=== PATIENT | female | born 1935 | race Caucasian/White ===

== ENCOUNTER 2016-12-05 12:20 | Outpatient (CLI) | payer MEDICARE, OTHER ==
[2013-02-07 08:17] VITALS: BP 140/66
== END 2016-12-05 12:25 ==
LOC: LAB 12:20
PROVIDERS: ATTEND Family Medicine
DX: I10 Essential (primary) hypertension (principal); E11.9 Type 2 diabetes mellitus without complications
CPT/HCPCS: 36415; 80048; 83036

== ENCOUNTER 2017-04-20 11:44 | Outpatient (CLI) | payer MEDICARE, OTHER ==
[2013-02-07 08:17] VITALS: BP 140/66
--- NOTE | 2017-04-20 14:00 | Diagnostic Imaging Report ---
FLETCHER HOWARD [facility] [address] [facility] [address] [address] Report Submission Date: Apr 20, 2017 1:13:03 PM CDT Patient Study Name: GARRETT MERRILL Date: Apr 20, 2017 11:51:24 AM CDT Modality Type: CR Gender: F Description: CHEST : 37 Institution: [facility] Physician: FLETCHER HOWARD Examination: PA and lateral chest. History: Cough Comparison exam: 30 December 2015 Findings: PA lateral chest demonstrate a normal cardiac and mediastinal silhouette. No focal infiltrate. No effusion. No blunting of the costophrenic margins. Stable right lower lung granuloma. Osseous structures are appropriate for age. Impression: No acute process. Electronically signed on Apr 20, 2017 1:13:03 PM CDT by: Salvador MILLER
== END 2017-04-20 11:45 ==
LOC: RAD 11:44
PROVIDERS: ATTEND Family Medicine
DX: R05 Cough (principal)
CPT/HCPCS: 71020

== ENCOUNTER 2017-08-24 12:19 | Outpatient (CLI) | payer MEDICARE, OTHER ==
[2013-02-07 08:17] VITALS: BP 140/66
[2017-08-24 12:32] LABS: BASOPHILS % 0.8 (0.0-1.5); EOSINOPHILS % 6.4 % (0.0-6.8); MEAN CORPUSCULAR VOLUME 95.2 fl (80.0-100.0); MONOCYTES % 4.9 % (0.0-11.0); NEUTROPHILS # 3.2 # k/uL (1.4-7.7)
[2017-08-24 13:06] LABS: eGFR (African) > 60; eGFR (Non-African) > 60
== END 2017-08-24 12:20 ==
LOC: LAB 12:19
PROVIDERS: ATTEND Family Medicine
DX: E03.9 Hypothyroidism, unspecified (principal); Z51.81 Encounter for therapeutic drug level monitoring
CPT/HCPCS: 36415; 80053; 84443; 85025

== ENCOUNTER 2017-11-29 11:46 | Observation (INO) | payer MEDICARE, OTHER ==
[2017-11-29 12:18] LABS: BASOPHILS % 1.2 (0.0-1.5); EOSINOPHILS % 0.3 % (0.0-6.8); MEAN CORPUSCULAR HEMOGLOBIN 31.1 pg (28.0-34.0); MEAN CORPUSCULAR VOLUME 96.5 fl (80.0-100.0); MONOCYTES % 4.7 % (0.0-11.0); NEUTROPHILS # 3.3 # k/uL (1.4-7.7)
[2017-11-29] MEDS ORDERED: ONDANSETRON HCL/PF 4 MG/ 2ML VIAL IVP ONE (12:18)
[2017-11-29] MEDS ORDERED: 0.9 % SODIUM CHLORIDE 500 ML IV ONE ×2 (12:23→12:36)
[2017-11-29 12:30] LABS: eGFR (African) > 60; eGFR (Non-African) > 60
--- NOTE | 2017-11-29 12:37 | ED Physician Documentation ---
General Adult - HISTORIAN Historian: patient, other (family) - HPI Stated Complaint: Cough/Congestion/Fatigue Chief Complaint: General Adult Onset: days ago (2) Timing: still present Severity: moderate Further Comments: yes (Pt is an 82 yo female with cough, vomiting, and fatigue. Pt has had chills but is afebrile. Pt has hx COPD, afib.) - ROS CONST: weakness, chills CVS/RESP: cough GI/: vomiting, nausea MS/SKIN/LYMPH: none - PAST HX Past History: other (Depression, DM, HLD, COPD, Afib,) Surgeries/Procedures: cholecystectomy Allergies/Adverse Reactions: Allergies Allergy/AdvReac Type Severity Reaction Status Date / Time succinylcholine Allergy Severe Anaphylaxis Verified 09/25/12 04:49 [Succinylcholine] naproxen [From Naprosyn] Allergy Intermediate Verified 09/25/12 04:49 Penicillins Allergy Intermediate Verified 09/25/12 04:50 Sulfa (Sulfonamide Allergy Intermediate Verified 09/25/12 04:49 Antibiotics) [Sulfa(Sulfonamide Antibiotics)] sulindac [From Clinoril] Allergy Intermediate Verified 09/25/12 04:50 aspirin Allergy Verified 01/21/13 18:28 Home Medications: Ambulatory Orders Medication Instructions Recorded Donepezil HCl 10 mg PO DAILY 11/29/17 - SOCIAL HX Smoking History: non-smoker - FAMILY HX Family History: Yes (dementia) - VITAL SIGNS Vital Signs: Vital Signs Temp Pulse Resp BP Pulse Ox 97.4 F L 68 16 178/59 93 11/29/17 11:46 11/29/17 11:46 11/29/17 11:46 11/29/17 11:46 11/29/17 11:46 - REVIEWED ASSESSMENTS Nursing Assessment Reviewed: Yes Vitals Reviewed: Yes Progress - Progress Progress: NS 500 cc IVF Zofran 4 mg IV Influenza A - pos Influenza B - neg (Pt has been ill for 48 hrs.) Admit to Dr[address] Coronel. ED Results Lab/Radiology - Lab Results Lab Results: Lab Results 11/29/17 11/29/17 11/29/17 12:15 12:15 12:05 WBC 4.00 K/ul K/ul (4.00-12.00) RBC 3.98 M/ul M/ul (3.90-5.20) Hgb 12.4 g/dL g/dL (12.0-16.0) Hct 38.4 % % (34.5-46.5) MCV 96.5 fl fl (80.0-100.0) MCH 31.1 pg pg (28.0-34.0) MCHC 32.2 g/dL g/dL (30.0-36.0) RDW 13.1 % % (11.3-14.3) Plt Count 220 K/mm3 K/mm3 (130-400) Neut % (Auto) 84.0 % H % (39.0-79.0) Lymph % (Auto) 8.6 % L % (16.0-50.0) [place] % (Auto) 4.7 % % (0.0-11.0) Eos % (Auto) 0.3 % % (0.0-6.8) Baso % (Auto) 1.2 (0.0-1.5) Neut # (Auto) 3.3 # k/uL # k/uL (1.4-7.7) Lymph # (Auto) 0.3 # k/uL L # k/uL (0.6-4.0) [place] # (Auto) 0.2 # k/uL # k/uL (0.0-0.9) Eos # (Auto) 0.0 # k/uL # k/uL (0.0-0.6) Baso # (Auto) 0.0 # k/uL # k/uL (0.0-0.5) Reactive Lymphs % 1.1 % % (0.0-5.0) Reactive Lymphs # 0.0 # k/uL # k/uL (0.0-0.8) Sodium 140 mmol/L mmol/L (136-145) Potassium 3.8 mmol/L mmol/L (3.5-5.1) Chloride 101 mmol/L mmol/L (98-107) Carbon Dioxide 25 mmol/L mmol/L (22-30) BUN 23 mg/dL H mg/dL (7-17) Creatinine 0.80 mg/dL mg/dL (0.52-1.04) Estimated Creat Clear 69 Est GFR ( Amer) > 60 (60 - ) Est GFR (Non-Af Amer) > 60 (60 - ) Glucose 430 mg/dL H mg/dL (74-106) Calcium 9.5 mg/dL mg/dL (8.4-10.2) Total Bilirubin 0.3 mg/dL mg/dL (0.2-1.3) AST 26 U/L U/L (15-46) ALT 20 U/L U/L (13-69) Alkaline Phosphatase 110 U/L U/L (38-126) Creatine Kinase Pending Total Protein 7.4 g/dL g/dL (6.3-8.2) Albumin 4.2 g/dL g/dL (3.5-5.0) Influenza Type A Ag Positive H (NEGATIVE) Influenza Type B Ag Negative (NEGATIVE) - Orders Orders: ED Orders Category Date Time Status Continuous EKG monitoring Q30M Care 11/29/17 12:12 Active Continuous Pulse Oximetry Q30M Care 11/29/17 12:[address] IV Lock 1T Care 11/29/17 12:12 Active CHEST 1 VIEW [RAD] Stat Exams 11/29/17 Ordered CBC/PLATELET/DIFF Routine Lab 11/29/17 12:15 Completed CMP Routine Lab 11/29/17 12:15 Results CREATINE KINASE Routine Lab 11/29/17 12:15 Results INFLUENZA A&B Stat Lab 11/29/17 12:05 Completed NT-proBNP Stat Lab 11/29/17 12:15 Received TROPONIN I (cTnI) Stat Lab 11/29/17 12:15 Received 0.9 % Sodium Chloride [Normal Saline] 500 ml Med 11/29/17 12:23 Discontinued IV .STK-MED Ondansetron HCl/Pf [Zofran 4 mg/2 ml] Med 11/29/17 12:18 Discontinued 4 mg IVP NOW ONE Oxygen Daily Oxygen 11/29/17 12:15 Ordered EKG WITH COMPARISON Stat Ther 11/29/17 12:12 Ordered General Adult Physical Exam - PHYSICAL EXAM GENERAL APPEARANCE: moderate distress EENT: pharynx normal, dry mucous membranes NECK: normal inspection, supple RESPIRATORY: no resp distress, rhonchi, other (coarse breath sounds) CVS: reg rate & rhythm, heart sounds normal ABDOMEN: soft, no organomegaly, normal bowel sounds BACK: normal inspection, no CVA tenderness SKIN: warm/dry, normal color EXTREMITIES: non-tender, normal range of motion, no evidence of injury NEURO: oriented X3, motor nml, sensation nml Discharge Clincal Impression: Influenza A, Dehydration Condition: Stable Disposition: 09 ADMITTED INPATIENT Decision to Admit: NO Decision Time: 13:53
--- NOTE | 2017-11-29 12:54 | Diagnostic Imaging Report ---
NIYA LAY [facility] [address] [facility] [address] [place] [address]. [id number] Report Submission Date: Nov 29, 2017 12:32:23 PM HEM INSPECTOR Patient Study Name: GARRETT MERRILL Date: Nov 29, 2017 12:19:41 PM HEM INSPECTOR Modality Type: CR Gender: F Description: CHEST : 37 Institution: [facility] Physician: NIYA LAY Examination: Portable chest History: Evaluate lungs Comparison exam: 20 April 2017 Findings: Single view of the chest demonstrates a normal cardiac silhouette. Tortuosity of the aorta. Lung cooper without focal infiltrate. No blunting of the costophrenic margins. Stable granuloma right lower lung. Osseous structures are appropriate for age. Impression: No acute appearing pulmonary process. Electronically signed on Nov 29, 2017 12:32:23 PM HEM INSPECTOR by: Salvador MILLER
[2017-11-29] MEDS ORDERED: IPRATROPIUM/ALBUTEROL SULFATE 3 ML AMPUL.NEB NEB PRN (13:46)
[2017-11-29] MEDS ORDERED: AZITHROMYCIN 500 MG VIAL IV ONE (13:48)
[2017-11-29] MEDS ORDERED: 0.9 % SODIUM CHLORIDE 250 ML IV ONE (13:48)
[2017-11-29] MEDS ORDERED: AZITHROMYCIN 500 MG in 0.9 % SODIUM CHLORIDE 250 ML IV SCH (14:00)
--- NOTE | 2017-11-29 16:50 | History and Physical Report ---
History of Present Illnes - History of Present Illness Reason for Visit: dyspnea History of Present Illness: 82-year-old white female who stated she has developed a cough that is been productive of some clear plan over the last two days. Patient is started having some reading increasing dyspnea shortness of breath with exertion. Patient has some mild loving vomiting. Patient denies any fever but have had some chills. Family is wondering whether the patient may be having some aspiration. Patient has had some small studies done which had been normal. Patient is diabetic and stated her blood sugars have been running high. Patient has become weaker subsequently was seen in the ED for evaluation. In the ED patient was noted to have a positive influenza screen, with having some bilateral wheezing. Patient was subsequently admitted to the hospital for further care and evaluation. - Past Medical History Cardiac: HTN, Hyperlipidemia Pulmonary: Pulmonary embolus SIGNAL INTELLIGENCE ANALYST: Seizure (ORIF wrist fx, excision of meningloma of L hemisphere, tympanoplasty), Other (Parkinson's disease,) Gastrointestinal: Gastritis, Other (ischemic colitis) Renal/: Chronic renal insuff Endocrine: Diabetes (type 2) - Past Surgical History Past Surgical History: Cataract Removal, Hysterectomy, Other - Past Family History Mother Family History: CAD, (63yo) Father Family History: Cancer (panreatic) - Past Social History Smoke: # pack years (4), Quit Alcohol: None Drugs: None Lives: With Family Domestic Violence: Negative - Health Maintenance Health Maintenance: Influenza Vaccine. denies: Pneumococcal Vaccine Influenza Vaccine: Current for this Influenza Season Pneumonia Vaccine: Yes Resuscitation Status: Full Code - Unable to Obtain History Unable to Obtain: No Review of Systems - Review of Systems Constitutional: Chills, Weakness, Malaise. negative: Fever, Sweats Eyes: negative: pain, vision change, conjunctivae inflammation, redness ENT: Other (decrease hearing). negative: Ear Pain, Ear Discharge, Nose Pain, Nose Discharge, Throat Pain Respiratory: Cough, SOB with Excertion, Sputum. negative: Dry, Shortness of Breath, Hemoptysis, Pleuritic Pain Cardiovascular: negative: Chest Pain, Palpitations, Orthopnea, Paroxysmal Noc. Dyspnea, Edema Gastrointestinal: Nausea, Vomiting. negative: Abdominal Pain, Diarrhea, Constipation, Melena, Hematochezia Genitourinary: negative: Dysuria, Incontinence Musculoskeletal: Back Pain Skin: negative: Rash Neurological: Weakness. negative: Numbness, Incoordination, Change in Speech - Medications/Allergies Allergies/Adverse Reactions: Allergies Allergy/AdvReac Type Severity Reaction Status Date / Time succinylcholine Allergy Severe Anaphylaxis Verified 09/25/12 04:49 [Succinylcholine] naproxen [From Naprosyn] Allergy Intermediate Verified 09/25/12 04:49 Penicillins Allergy Intermediate Verified 09/25/12 04:50 Sulfa (Sulfonamide Allergy Intermediate Verified 09/25/12 04:49 Antibiotics) [Sulfa(Sulfonamide Antibiotics)] sulindac [From Clinoril] Allergy Intermediate Verified 09/25/12 04:50 aspirin Allergy Verified 01/21/13 18:28 Home Medications: Home Medications Donepezil HCl 10 mg PO DAILY 11/29/17 Current Inpatient Medications: Current Inpatient Medications Albuterol/Ipratropium (Duoneb) 3 ml NEB Q4 PRN PRN Reason: Wheezing Carbidopa/Levodopa (Sinemet) 1 each PO TID [facility] Citalopram Hydrobromide (Celexa) 40 mg PO DAILY [facility] Clopidogrel Bisulfate (Plavix) 75 mg PO DAILY [facility] Docusate Sodium (Colace) 100 mg PO BID [facility] Donepezil HCl (Aricept) 10 mg PO HS [facility] Fluticasone Propionate (Flonase Nasal [place]) spray NS DAILY [facility] Folic Acid (Folvite) 1 mg PO DAILY [facility] Gabapentin (Neurontin) 600 mg PO TID [facility] Azithromycin 500 mg/ Sodium (Chloride) 250 mls @ 125 mls/hr IV Q24H [facility] Stop: 12/09/17 13:59 Last Admin: 11/29/17 14:24 Dose: 125 mls/hr Sodium Chloride (Normal Saline) 1,000 mls @ 100 mls/hr IV Q10H [facility] Insulin Detemir (Levemir Flex-Pen) 16 unit SQ HS [facility] Insulin Human Regular (Humulin R) 0 - 12 unit SQ CHEMX3 JASMIN PRN Reason: Protocol Losartan Potassium (Cozaar) 100 mg PO DAILY [facility] Nystatin (Nystop) appl TP BID [facility] Stop: 12/09/17 20:59 Omeprazole (Omeprazole) 40 mg PO 0700 [facility] Simvastatin (Zocor) 20 mg PO DAILY [facility] Sitagliptin Phosphate (Januvia) 10 mg PO DAILY [facility] Tramadol HCl (Ultram) 50 mg PO QID [facility] Exam - Exam Vital Signs: Vital Signs (72 hours) 11/29/17 14:10 Pulse Rate [ 68 Pulse ox] Respiratory 18 Rate Blood Pressure 130/68 [Right Arm] O2 Sat by Pulse 94 Oximetry General: Alert, Oriented to Person, Oriented to Place, Oriented to Time, Cooperative HEENT: Atraumatic, PERRLA, EOMI, Mouth Mucous membr. moist/[place], Nose Mucous membr. moist/[place], Edentulous, Decreased Hearing Acuity Neck: Normal Range of Motion Carotids: Within normal limits Thyroid: Within normal limits Lungs: Normal air movement, Speaks full Sentences, Wheezes (Bilateral in all lung cooper.), Rhonchi (A few course rhonchi were noted in the right lung field posteriorly.) Cardiovascular: Regular rate, Normal S1, Normal S2, No murmurs Abdomen: Normal bowel sounds, Soft, No tenderness, No hepatospenomegaly, No masses Integumentary: Normal, [place], Warm, Dry Extremities: No clubbing, No cyanosis, No edema, Normal pulses, No tenderness/ swelling Neurological: Normal gait, Normal speech, Strength Equal Bilat, Normal tone, Sensation intact, Cranial nerves 3-12 NL, Reflexes 2+ Psych/Mental Status: Mental status NL, Mood NL, Appropriate Affect, Intact Judgment Assessment/Plan - Assessment/Plan (1) Influenza Status: Acute (2) Diabetes type 2, controlled Status: Acute (3) Essential hypertension Status: Acute (4) Parkinson disease Status: Acute (5) CKD (chronic kidney disease) Status: Acute VTE Assessment - RISK FACTOR SCORE VTE RISK FACTOR SCORES: AGE OVER 60 YEARS, ACUTE INFECTION OTHER THEN SEPSIS
[2017-11-29] MEDS: 0.9 % SODIUM CHLORIDE 1,000 ML IV SCH (16:54)
[2017-11-29 17:17] VITALS: BMI 24.4
[2017-11-29] MEDS: traMADol HCL 50 MG TABLET PO SCH ×2 (17:25→21:38)
[2017-11-29] MEDS: INSULIN DETEMIR 100 UNIT/ML 3ML PEN.INJCTR SQ SCH ×2 (17:26→20:45)
[2017-11-29] MEDS: GABAPENTIN 300 MG CAPSULE PO SCH (17:27)
[2017-11-29] MEDS: INSULIN REGULAR, HUMAN 100 UNIT/ML 3ML VIAL SQ SCH (17:28)
[2017-11-29] MEDS ORDERED: ZOLPIDEM TARTRATE 5 MG TABLET PO PRN (18:07)
[2017-11-29] MEDS: OSELTAMIVIR PHOSPHATE 75 MG CAPSULE PO SCH ×2 (18:35→18:37)
[2017-11-29] MEDS: DONEPEZIL HCL 5 MG TABLET PO SCH ×2 (20:44)
[2017-11-29] MEDS: DOCUSATE SODIUM 100 MG CAPSULE PO SCH (20:44)
[2017-11-29] MEDS ORDERED: NYSTATIN POWDER BOTTLE TP SCH (21:00)
[2017-11-29] MEDS: IPRATROPIUM/ALBUTEROL SULFATE 3 ML AMPUL.NEB NEB SCH (21:22)
[2017-11-29] MEDS ORDERED: ENOXAPARIN SODIUM 30 MG/0.3 ML DISP.SYRIN SQ SCH (23:00)
[2017-11-30] MEDS: IPRATROPIUM/ALBUTEROL SULFATE 3 ML AMPUL.NEB NEB SCH ×3 (00:56→10:35)
[2017-11-30] MEDS: 0.9 % SODIUM CHLORIDE 1,000 ML IV SCH ×2 (02:00→12:32)
--- NOTE | 2017-11-30 06:49 | Diagnostic Imaging Report ---
[facility] [address] [address] [facility] [address] [place] [address]. [id number] Report Submission Date: Nov 30, 2017 6:44:01 AM RETURNED GOODS INSPECTOR Patient Study Name: GARRETT MERRILL Date: Nov 30, 2017 6:29:40 AM RETURNED GOODS INSPECTOR Modality Type: CR Gender: F Description: CHEST : 36 Institution: [facility] Physician: [facility] HISTORY: 82-year-old female with cough. COMPARISON: Chest x-ray from the previous day. TECHNIQUE: Single portable AP view of the chest was performed. FINDINGS: No pneumothorax, consolidative infiltrates, or pulmonary edema. Calcified granuloma is re-identified in the right lung base. The heart is not enlarged. IMPRESSION: Old granulomatous disease of the chest without evidence of acute intrathoracic process. Electronically signed on Nov 30, 2017 6:44:01 AM RETURNED GOODS INSPECTOR by: Doug MILLER
[2017-11-30 07:45] LABS: BASOPHILS % 0.9 (0.0-1.5); EOSINOPHILS % 0.4 % (0.0-6.8); MEAN CORPUSCULAR HEMOGLOBIN 30.2 pg (28.0-34.0); MEAN CORPUSCULAR VOLUME 96.4 fl (80.0-100.0); MONOCYTES % 8.7 % (0.0-11.0); NEUTROPHILS # 2.1 # k/uL (1.4-7.7)
[2017-11-30 07:49] LABS: eGFR (African) > 60; eGFR (Non-African) > 60
[2017-11-30] MEDS ORDERED: FLUTICASONE PROPIONATE 120 SPRAY/16 GR BOTTLE NS SCH (09:00)
[2017-11-30] MEDS ORDERED: CLOPIDOGREL BISULFATE 75 MG TABLET PO SCH (09:00)
[2017-11-30] MEDS ORDERED: LOSARTAN POTASSIUM 50 MG TABLET PO SCH (09:00)
[2017-11-30] MEDS ORDERED: FOLIC ACID 1 MG TABLET PO SCH (09:00)
[2017-11-30] MEDS ORDERED: CITALOPRAM HYDROBROMIDE 20 MG TABLET PO SCH (09:00)
[2017-11-30] MEDS ORDERED: SITAGLIPTIN PHOSPHATE 50 MG TABLET PO SCH ×2 (09:00)
[2017-11-30] MEDS ORDERED: SIMVASTATIN 20 MG TABLET PO SCH (09:00)
[2017-11-30] MEDS ORDERED: OMEPRAZOLE 20 MG CAPSULE.DR PO SCH (09:00)
[2017-11-30] MEDS: DOCUSATE SODIUM 100 MG CAPSULE PO SCH (10:28)
[2017-11-30] MEDS: GABAPENTIN 300 MG CAPSULE PO SCH (10:29)
[2017-11-30] MEDS: traMADol HCL 50 MG TABLET PO SCH (10:29)
[2017-11-30] MEDS: OSELTAMIVIR PHOSPHATE 75 MG CAPSULE PO SCH (10:30)
[2017-11-30] MEDS: INSULIN REGULAR, HUMAN 100 UNIT/ML 3ML VIAL SQ SCH ×2 (10:56→11:57)
[2017-11-30 14:29] VITALS: BP 128/64
--- NOTE | 2017-11-30 15:14 | Discharge Summary ---
DATE OF ADMISSION: November 29, 2017 DATE OF DISCHARGE: November 30, 2017 DIAGNOSES ON THIS HOSPITALIZATION: 1. Acute Influenza A infection. 2. Chronic diabetes, well controlled. 3. Hypertension, well controlled. 4. Chronic Parkinson disease, well controlled. 5. Chronic kidney disease, stable. SUMMARIZATION OF ADMISSION HISTORY AND PHYSICAL: This is an 82-year-old female who presented with some cough for the last several days. She had been having some increasing dyspnea with exertion and had enough coughing that she became very, very tired. As a result, she came to the emergency room for an evaluation. Chest x-ray failed to show any infiltrates or any overt congestive heart failure. Her Influenza A was positive. She was initially placed on oxygen but was able to wean down to room air by the morning of discharge. She discharged to home then with continuation of all of her home medications with the exception of increasing her nebulizer treatments to 1 q.i.d. scheduled rather than p.r.n. as had been and also, I sent a prescription for Robitussin AC 10 mL p.o. every 4 hours p.r.n. cough out to [facility] and they will deliver that. CONDITION ON DISCHARGE: She is discharged to home in improved condition. ANGELA
[2017-12-01] MEDS ORDERED: PANTOPRAZOLE SODIUM 40 MG TABLET PO SCH (07:00)
== END 2017-11-30 15:13 | disposition home or self-care (01) ==
LOC: ED 11:46 → INTOOBSV 13:50 → SOUTH 13:50
PROVIDERS: ADMIT Family Medicine; ATTEND Family Medicine
DX: J09.X2 Influenza due to identified novel influenza A virus with other respiratory manifestations (principal); E86.0 Dehydration; N17.9 Acute kidney failure, unspecified; E11.9 Type 2 diabetes mellitus without complications; E78.5 Hyperlipidemia, unspecified; I10 Essential (primary) hypertension
CPT/HCPCS: 36415; 71010; 80053; 82550; 83880; 84484; 85025; 87040; 87400; 93005; G0379; J0456; J1650; J1815; J2405; J7030; J7050; J7060; 96360; 99217; 99218; 99284; G0378; S1016

== ENCOUNTER 2017-12-19 11:57 | Outpatient (CLI) | payer MEDICARE, OTHER ==
--- NOTE | 2017-12-19 15:07 | Diagnostic Imaging Report ---
FLETCHER HOWARD [facility] [address] [facility] [address] [place] [address]. [id number] Report Submission Date: Dec 19, 2017 12:37:44 PM CARBURETOR REBUILDER Patient Study Name: GARRETT MERRILL Date: Dec 19, 2017 12:10:20 PM CARBURETOR REBUILDER Modality Type: CR Gender: F Description: CHEST : 37 Institution: [facility] Physician: FLETCHER HOWARD Examination: PA and lateral chest. History: COUGH AND WHEEZING X 1 WEEK, RECENT INFLUENZA A (Hx) / COUGH, WHEEZING , RECENT INFLUENZA A (DICOM Hx) / COUGH, WHEEZING, RECENT INFLUENZA A (Pt comments) Comparison exam: 30 November 2017. Findings: PA lateral chest demonstrate a normal cardiac and mediastinal silhouette. Chronic interstitial changes and granulomata. No focal infiltrate. No blunting of the costophrenic margins. Articular degenerative changes. Thoracic spine degenerative spurring. Impression: Chronic interstitial changes. No acute appearing pulmonary process. Electronically signed on Dec 19, 2017 12:37:44 PM CARBURETOR REBUILDER by: Salvador MILLER
== END 2017-12-19 12:00 ==
LOC: LAB 11:57
PROVIDERS: ATTEND Family Medicine
DX: R05 Cough (principal); E11.9 Type 2 diabetes mellitus without complications
CPT/HCPCS: 36415; 71020; 83036

== ENCOUNTER 2018-12-13 16:16 | Outpatient (CLI) | payer MEDICARE, OTHER ==
[2018-12-13 16:41] LABS: MEAN CORPUSCULAR HEMOGLOBIN 31.6 pg (28.0-34.0)
[2018-12-13 17:16] LABS: eGFR (Non-African) > 60
== END 2018-12-13 16:17 ==
LOC: LABRHC 16:16
PROVIDERS: ATTEND Family Medicine
DX: E11.9 Type 2 diabetes mellitus without complications (principal); I10 Essential (primary) hypertension
CPT/HCPCS: 36415; 80053; 83036; 85027

== ENCOUNTER 2019-11-02 16:43 | Emergency (ER) | payer MEDICARE, OTHER ==
--- NOTE | 2019-11-02 17:00 | ED Physician Documentation ---
General Adult - HISTORIAN Historian: patient - HPI Stated Complaint: facial droop, head trauma Chief Complaint: General Adult Onset: days ago (3) Timing: still present Severity: moderate Further Comments: yes (Pt is an 84 yo female who fell from bed on 10-30-19 and struck her head on a trash basket. Pt has since slowly developed increased difficulty walking and presents with L facial droop. Pt arrived by private vehicle. Pt has hx Parkinson's with gait disturbance and dysphagia. Pt has worsening gait disturbance and speech difficulty as well as L facial droop. Pt has seizure d/o and hx craniotomy for benign brain lesion.) - ROS CONST: weakness EYES/ENT: none CVS/RESP: none GI/: none MS/SKIN/LYMPH: none NEURO/PSYCH: other (worsening gait/speech disturbance, facial droop) - PAST HX Past History: other (DMII with neuropathy; benign neoplasm of brain with craniotomy; HTN; GERD; OA; HLD; asthma; anxiety; seizure; gait disturbance; hearing loss; Parkinson's; mild dementia.) Allergies/Adverse Reactions: Allergies Allergy/AdvReac Type Severity Reaction Status Date / Time succinylcholine Allergy Severe Anaphylaxis Verified 11/02/19 17:17 [Succinylcholine] naproxen [From Naprosyn] Allergy Intermediate Verified 11/02/19 17:17 Penicillins Allergy Intermediate Verified 11/02/19 17:17 Sulfa (Sulfonamide Allergy Intermediate Verified 11/02/19 17:17 Antibiotics) [Sulfa(Sulfonamide Antibiotics)] sulindac [From Clinoril] Allergy Intermediate Verified 11/02/19 17:17 aspirin Allergy Verified 11/02/19 17:17 Succinylcholine Allergy Severe Anaphylaxis Uncoded 11/02/19 17:17 naproxen Allergy Intermediate Uncoded 11/02/19 17:17 Penicillins Allergy Intermediate Uncoded 11/02/19 17:17 Sulfa(Sulfonamide Allergy Intermediate Uncoded 11/02/19 17:17 Antibiotics) Sulindac Allergy Intermediate Uncoded 11/02/19 17:17 Home Medications: Ambulatory Orders Medication Instructions Recorded Donepezil HCl 10 mg PO DAILY 11/29/17 - SOCIAL HX Smoking History: non-smoker - FAMILY HX Family History: No - VITAL SIGNS Vital Signs: Vital Signs Temp Pulse Resp BP Pulse Ox 128/64 01/19/18 14:00 - REVIEWED ASSESSMENTS Nursing Assessment Reviewed: Yes Vitals Reviewed: Yes Progress - Progress Progress: CT BRAIN WITHOUT CONTRAST HISTORY: Head injury Comparison: April 2019 TECHNIQUE: Axial images were obtained from the skullbase to the vertex without IV contrast. FINDINGS: The ventricular system, basilar cisterns and cortical sulci are prominent compatible with age-related cortical volume loss. Patchy areas of periventricular to subcortical white matter lucency are present consistent with moderate small vessel ischemic disease. There is no positive mass effect or intra/extra-axial hemorrhage. There is an unchanged region of encephalomalacia high at the left frontal lobe. Visualized paranasal sinuses and mastoid air cells are clear. Hearing aids are present bilaterally. There has been a left craniotomy high at the vertex. IMPRESSION: Age-related cortical volume loss with moderate small vessel ischemic disease. No acute intracranial abnormality. Old left frontal craniotomy high at the vertex with a chronic, subjacent area of left frontal lobe encephalomalacia. CT cervical spine History: Status post fall with head injury Technique: Helically acquired images were obtained through the cervical spine. Sagittal and coronal reconstructions were performed. Findings: There is incomplete fusion at the posterior arch of C1. There is no evidence for acute fracture or dislocation. There are cystic areas of the thyroid lobes bilaterally. These findings are most consistent with several colloid cysts. The largest is on the right measuring 1.5 cm. The dens is intact. The lateral masses of C1 and C2 are aligned. C2/3: Unremarkable C3/4: There is severe loss of intervertebral disc space height with severe bilateral facet arthropathy. As a result, there is a grade 1 retrolisthesis of C3 relative to C4 measured at 6 mm and there is moderate bilateral foraminal narrowing. Additionally, there is moderate to severe central stenosis with the AP dimension of the canal measuring 6.5 mm. C4/5: There is mild right and severe left facet arthropathy as well as uncovertebral joint hypertrophy. There is [id number] bilateral foraminal narrowing, left worse than right. C5/6: There is a posterior disc osteophyte complex at this level with moderate disc space narrowing and vacuum disc phenomenon. There is moderate central stenosis with the AP dimension of the canal measuring 7.8 mm. There is severe bilateral foraminal narrowing secondary to the disc osteophyte complex. C6/7: There is mild left foraminal narrowing but no central stenosis. C7/T1: Unremarkable. Impression: No evidence for acute fracture or dislocation. 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 Please see body of report with regard to degenerative findings by level. MRI of the cervical spine could be obtained for further assessment of the cord and central canal. Colloid cysts of the thyroid bilaterally. Hydralazine 5 mg x 2 BP 206/96 --> 182/81 transfer to [facility]. Dr. Saavedra (Pt sees Dr. Hawkins at [facility] for Parkinson's) - EKG/XRAY/CT EKG: NSR (NSR with sinus arrhythmia, HR=62; 1st degree AV block; LVH by voltage.) ED Results Lab/Radiology - Orders Orders: ED Orders Category Date Time Status CT BRAIN W/O CONTRAST Stat Exams 11/02/[address] C-SPINE W/O CONTRAST Stat Exams 11/02/19 Ordered General Adult Physical Exam - PHYSICAL EXAM GENERAL APPEARANCE: moderate distress EENT: eye inspection normal, pharynx normal NECK: normal inspection, supple RESPIRATORY: no resp distress, chest non-tender, breath sounds normal CVS: reg rate & rhythm, heart sounds normal ABDOMEN: soft, no organomegaly, normal bowel sounds BACK: normal inspection SKIN: warm/dry, normal color EXTREMITIES: non-tender NEURO: disoriented (hx mild dementia, Parkinsons), other (L facical droop; L UE weakness 4+ v 5+ R; hx mild dementia; ) Discharge Clincal Impression: Parkinson disease, recent head injury Change in mental status Qualifiers: Altered mental status type: unspecified Qualified Code(s): R41.82 - Altered mental status, unspecified Referrals: Gurvinder Coronel MD [STAFF PHYSICIAN] - Condition: Stable Disposition: XF [facility] Decision to Admit: NO Decision Time: 18:07
--- NOTE | 2019-11-02 17:08 | Diagnostic Imaging Report ---
PATIENT MR#: [id number] PATIENT PATIENT NAME: GARRETT MERRILL DATE OF : 1935 REFERRING PHYSICIAN: Simeon Jaeger EXAM DATE: 11/02/2019 ACCESSION NUMBER: [id number] EXAM DESCRIPTION: CT BRAIN W/O CONTRAST CT BRAIN WITHOUT CONTRAST HISTORY: Head injury Comparison: April 2019 TECHNIQUE: Axial images were obtained from the skullbase to the vertex without IV contrast. FINDINGS: The ventricular system, basilar cisterns and cortical sulci are prominent compatible with age-related cortical volume loss. Patchy areas of periventricular to subcortical white matter lucency are presen t consistent with moderate small vessel ischemic disease. There is no positive mass effect or intra/extra-axial hemorr nguyen. There is an unchanged region of encephalomalacia high at the left frontal lobe. Visualized paranasal sinuses and mastoid air cells are clear. Hearing aids are present bilaterally. There has been a left craniotomy high at the mallorie chris. IMPRESSION: Age-related cortical volume loss with moderate small vessel ischemic disease. No acute intracranial abnormality. Old left frontal craniotomy high at the vertex with a chronic, subjacent area of left frontal lobe en cephalomalacia. Read by: Dr. Rebeca Silva Transcribed by: Transcribed Date: Electronically signed by: Dr. Rebeca Silva Date signed: 11/02/2019 5:07:35 PM
[2019-11-02 17:12] LABS: NEUTROPHILS # 4.4 # k/uL (1.4-7.7)
--- NOTE | 2019-11-02 17:15 | Diagnostic Imaging Report ---
PATIENT MR#: [id number] PATIENT PATIENT NAME: GARRETT MERRILL DATE OF : 1935 REFERRING PHYSICIAN: Simeon Jaeger EXAM DATE: 11/02/2019 ACCESSION NUMBER: [id number] EXAM DESCRIPTION: CT C-SPINE W/O CONTRAS CT cervical spine History: Status post fall with head injury Technique: Helically acquired images were obtained through the cervical spine. Sagittal and coronal reconstructions were performed. Findings: There is incomplete fusion at the posterior arch of C1. There is no evidence for acute fr acture or dislocation. There are cystic areas of the thyroid lobes bilaterally. These findings are most consi stent with several colloid cysts. The largest is on the right measuring 1.5 cm. The dens is intact. The lateral masses of C1 and C2 are aligned. C2/3: Unremarkable C3/4: There is severe loss of intervertebral disc space height with severe bilateral facet arthropat hy. As a result, there is a grade 1 retrolisthesis of C3 relative to C4 measured at 6 mm and there is moderate bilater al foraminal narrowing. Additionally, there is moderate to severe central stenosis with the AP dimension of the canal measuring 6.5 mm. C4/5: There is mild right and severe left facet arthropathy as well as uncovertebral joint hypertrop hy. There is [id number] bilateral foraminal narrowing, left worse than right. C5/6: There is a posterior disc osteophyte complex at this level with moderate disc space narrowing and vacuum disc phenomenon. There is moderate central stenosis with the AP dimension of the canal measuring 7.8 mm. There is severe bilateral foraminal narrowing secondary to the disc osteophyte complex. C6/7: There is mild left foraminal narrowing but no central stenosis. C7/T1: Unremarkable. Impression: No evidence for acute fracture or dislocation. 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 Please see body of report with regard to degenerative findings by level. MRI of t he cervical spine could be obtained for further assessment of the cord and central canal. Colloid cysts of the thyroid bilaterally. Read by: Dr. Rebeca Silva Transcribed by: Transcribed Date: Electronically signed by: Dr. Rebeca Silva Date signed: 11/02/2019 5:15:35 PM
[2019-11-02 17:24] LABS: eGFR (Non-African) > 60
[2019-11-02] MEDS: hydrALAZINE HCL 20 MG/1 ML IVP ONE (17:34)
[2019-11-02 18:29] VITALS: BP 182/81
[2019-11-02 22:47] LABS: APPEARANCE,URINE CLEAR (CLEAR); COLOR,URINE YELLOW (YELLOW); OCCULT BLOOD,URINE TRACE-INTACT (NEGATIVE)
[2019-11-02 22:48] LABS: UROBILINOGEN URINE 0.2 Eu (0.2-1.0)
== END 2019-11-02 18:29 | disposition short-term general hospital (02) ==
LOC: ED 16:43
DX: G20 Parkinson's disease (principal); R41.82 Altered mental status, unspecified; S09.90XA Unspecified injury of head, initial encounter; X58.XXXA Exposure to other specified factors, initial encounter
CPT/HCPCS: 70450; 72125; 80053; 81002; 83880; 84484; 85025; 85610; 85730; 87086; 87186; 93005; 96374; 99283; 99284; J0360; S1016